=== PATIENT | female | born 1960 ===

== ENCOUNTER 2017-05-19 06:20 | Emergency (ER) | payer OTHER ==
[2017-05-19 07:10] LABS: BLOOD UREA NITROGEN 13 mg/dL (7-17); CHLORIDE 110 mmol/L (98-107); EST GLOMERULAR FILTRATION RATE > 60 mL/min; GLUCOSE 145 mg/dL (70-100); POTASSIUM 3.7 mmol/L (3.5-5.1); SODIUM 141 mmol/L (137-145)
[2017-05-19 07:14] LABS: BASOPHILS 0.6 % (0.0-2.0); EOSINOPHILS 4.6 % (0.0-6.0); EOSINOPHILS# 0.3 X 10^3uL (0.0-0.4); HEMATOCRIT 44.8 % (36.0-48.0); HEMOGLOBIN 15.2 g/dL (12.0-16.0); LYMPHOCYTES 25.1 % (20.0-40.0); LYMPHOCYTES# 1.6 X 10^3uL (0.8-3.8); MEAN CELL VOLUME 88.3 fL (80.0-100.0); MEAN CORPUS. HGB CONCENTRATION 33.9 g/dL (32.0-36.0); MEAN CORPUSCULAR HEMOGLOBIN 29.9 pg (29.0-35.0); MEAN PLATELET VOLUME 9.6 fL (7.4-10.4); MONOCYTES# 0.4 X 10^3uL (0.2-1.0); NEUTROPHILS 62.7 % (54.0-75.0); PLATELET COUNT 165 X 10^3uL (130-440); RED BLOOD COUNT 5.07 X 10^6uL (4.20-6.10); RED CELL DISTRIBUTION WIDTH 12.9 % (11.5-14.5); WHITE BLOOD COUNT 6.3 X 10^3uL (3.9-10.7)
[2017-05-19 07:24] LABS: CALCIUM 9.8 mg/dL (8.4-10.2)
[2017-05-19 07:25] LABS: ETHYL ALCOHOL < 10 mg/dL (<10)
--- NOTE | 2017-05-19 07:30 | CT REPORT ---
HISTORY: Seizure with altered mental status COMPARISON: None. TECHNIQUE: Dose reduction technique was utilized. Axial non-contrast images obtained from skull vertex through foramen magnum. Coronal reformats are obtained and reviewed. FINDINGS: BRAIN: No atrophy. No acute intracranial hemorrhage. No mass effect or hydrocephalus. No CT evidence of infarction. BONES AND EXTRACRANIAL SOFT TISSUES: The orbits are unremarkable. The paranasal sinuses and mastoid a ir cells are clear. The calvarium is intact. IMPRESSION: Normal head CT. Final Electronic Signature: This report was electronically signed by Rio Caicedo MD on 05/19/2017 7:28 AM. bcox /
[2017-05-19] MEDS ORDERED: ONDANSETRON HCL 4 MG/2 ML VIAL ONE (07:51)
--- NOTE | 2017-05-19 09:07 | ER PHYSICIAN DOCUMENTATION ---
Physician Documentation [facility] Name:Luz Cadena Age:56 yrs Sex:Female :1960 Arrival Date:05/19/2017 Time:06:20 BedTrauma-A Private MD:Physician, No ED Philip Amaya Disposition: 05/19/17 08:55 Discharged to Home/Self Care. Impression: Seizure. - Condition is Good. - Discharge Instructions: SEIZURE, Recurrent [Adult]. - Prescriptions for Zofran 4 mg Oral Tablet - take 1-2 tablet by ORAL route every 4-6 hours As needed; 10 tablet. - Medical Reconciliation form form. - Follow up: Private Physician; When: As needed; Reason: Continuance of care. - Problem is new. - Symptoms have improved. - Notes: You need to see a neurologist when you return home. HPI: 05/19 06:51 This 56 yrs old Unknown Female presents to ER via EMS with complaints of Seizure. wa 06:51 The patient presents after having a single isolated seizure, that lasted an unknown sc period of time. Character of seizure(s): Loss of consciousness: the patient experienced loss of consciousness, Motor activity: arching back in bed, foaming at mouth, 05:30, found by , then was confused and no recollection. Seizure onset: at 05:30. Context: the seizure(s) was witnessed, by a significant other, , occurred at home, occurred while the patient was asleep, Contributing factors: suspected or documented drug use, marijuana, marijuana tour yesterday. Seizure Hx: Cause: unknown, Last seizure: The patient's last seizure was approximately 17 year(s) ago, Seizure medications: briefly on seizure meds a few months in 1999. Associated injury: The patient did not suffer any apparent associated injury. EMS care: IV fluids. Current symptoms: confusion. Historical: - Allergies: No known drug Allergies; - Home Meds: 1. levothyroxine oral 2. statin - PMHx: HIGH CHOLESTEROL; - PSHx: None; - Tetanus: > 10 years. - Ebola Screening: : Patient denies exposure to infectious person. Patient denies travel to an Ebola-affected area in the 21 days before illness onset. . - Immunization history: Flu Vaccine None. - Social history: Smoking status: Patient states was never smoker of tobacco. Patient uses alcohol occasionally. marijuana. - Code Status:: Full code. ROS: 06:53 Constitutional: Negative for fever, chills, and weight loss. sc Eyes: Negative for injury, pain, redness, and discharge. ENT: Negative for injury, pain, and discharge. Neck: Negative for injury, pain, and swelling. Cardiovascular: Negative for chest pain, palpitations, and edema. Respiratory: Negative for shortness of breath, cough, wheezing, and pleuritic chest pain. Abdomen/GI: Negative for abdominal pain, nausea, vomiting, diarrhea, and constipation. Back: Negative for injury and pain. MS/Extremity: Negative for injury and deformity. 06:53 Skin: Negative for injury, rash, and discoloration. sc 06:53 Neuro: Positive for seizure activity. Exam: Constitutional: This is a well developed, well nourished patient who is awake, alert, and in no acute distress. Head/Face: Normocephalic, atraumatic. Eyes: Pupils equal round and reactive to light, extra-ocular motions intact. Lids and lashes normal. Conjunctiva and sclera are non-icteric and not injected. Cornea within normal limits. Periorbital areas with no swelling, redness, or edema. ENT: Nares patent. No nasal discharge, no septal abnormalities noted. Tympanic membranes are normal and external auditory canals are clear. Oropharynx with no redness, swelling, or masses, exudates, or evidence of obstruction, uvula midline. Mucous membranes moist. Neck: Trachea midline, no thyromegaly or masses palpated, and no cervical lymphadenopathy. Supple, full range of motion without nuchal rigidity, or vertebral point tenderness. No meningismus. Chest/axilla: Normal chest wall appearance and motion. Nontender with no deformity. No lesions are appreciated. Cardiovascular: Regular rate and rhythm with a normal S1 and S2. No gallops, murmurs, or rubs. Normal PMI, no JVD. No pulse deficits. Respiratory: Lungs have equal breath sounds bilaterally, clear to auscultation and percussion. No rales, rhonchi or wheezes noted. No increased work of breathing, no retractions or nasal flaring. Abdomen/GI: Soft, non-tender, with normal bowel sounds. No distension or tympany. No guarding or rebound. No evidence of tenderness throughout. Back: No spinal tenderness. No costovertebral tenderness. Full range of motion. 06:54 Skin: Warm, dry with normal turgor. Normal color with no rashes, no lesions, and no sc evidence of cellulitis. 06:54 Neuro: Orientation: is normal, Mentation: lucid, able to follow commands, slow to respond, Memory: is normal, Cranial nerves: CN II- XII are normal as tested, Cerebellar function: is grossly normal, Motor: is normal. Vital Signs: 06:43 BP 155 / 91; Pulse 100; Resp 18; Temp 98; Pulse Ox 94% on R/A; Weight 90.72 kg; Height lb 5 ft. 8 in. (172.72 cm); Pain 0/10; 08:41 BP 138 / 86 (auto/); tg 08:45 Pulse 66 MON; Resp 15; Pulse Ox 94% ; tg 08:50 Pulse 77 MON; Resp 22; Pulse Ox 94% ; tg 06:43 Body Mass Index 30.41 (90.72 kg, 172.72 cm) lb MDM: 06:39 Patient medically screened. wa 06:54 Differential diagnosis: seizure. wa 07:12 Transition of care: After a detail discussion of the patient's case, care is sc transferred to Fernando Luther MD. 08:09 Data reviewed: vital signs, nurses notes, lab test result(s), radiologic studies, and jm as a result, I will discharge patient. Counseling: I had a detailed discussion with the patient and/or guardian regarding: the historical points, exam findings, and any diagnostic results supporting the discharge/admit diagnosis, lab results, radiology results, the need for outpatient follow up, with the patient's primary care provider, a neurologist. Medication response: The patient's symptoms have improved. ED course: Pt better after IVF and zofran. CT head shows no abnormality. I believe that pt has a low sz threshold given sz in the past, coming to [place] on day 1, and going on a marijuana tour. Pt advised to not use THC while here and talk to her PCP/neurologist about potentially starting antiepileptics. I spoke w her about this and she declined. DC home w zofran. . 05/19 07:11 Order name: BASIC METABOLIC PANEL EDMS 05/19 07:15 Order name: CBC AUTO DIF, MDIF/RMOR IF IND EDME 05/19 07:25 Order name: ETHYL ALCOHOL EDME 05/19 07:31 Order name: CAT SCAN; HEAD W/O CON [id number] EDME 05/19 06:41 Order name: Iv Saline Lock; Complete Time: 06:47 sc Dispensed Medications: 07:44 Drug: Zofran 4 mg; Route: IVP; Infused Over: 2 mins; Site: right hand; tg 08:09 Follow up: Response: Nausea is decreased tg 07:44 Drug: NS 0.9% 1000 ml; Route: IV; Rate: bolus; Site: right hand; Delivery: [place] tg Tubing; 08:43 Follow up: IV Status: Completed infusion; IV Intake: 1000ml tg Signatures: Adam Leiva RN RN tg Philip Triana MD MD sc Meyer, John, MD MD jm Bollock, Lynda lb
--- NOTE | 2017-05-19 09:07 | ER NURSING DOCUMENTATION ---
Nurse's Notes [facility] Name:Luz Cadena Age:56 yrs Sex:Female :1960 Arrival Date:05/19/2017 Time:06:20 BedTrauma-A Private MD:Physician, No Diagnosis:Seizure Presentation: 05/19 06:28 Acuity: JANA 2 lb 06:35 Presenting complaint: EMS states: possible seizure this am, found pt with lb backarching, foaming at the mouth. lasted approx 5 minutes. full body shaking. had marijuana yesterday, no recollection of incidence. Transition of care: patient was not received from another setting of care. Notified ED Physician of Dr. Triana notified. 06:35 Method Of Arrival: EMS: 410 lb Triage Assessment: 06:41 General: Appears distressed, Behavior is appropriate for age, cooperative. Pain: Denies lb pain. Neuro: Level of Consciousness is awake, alert, confused, Oriented to person, place, Clinical Education Manager are equal bilaterally Moves all extremities. Gait is steady, Speech is normal, Facial symmetry appears normal, Pupils are PERRLA, Denies. Cardiovascular: No deficits noted. Respiratory: Airway is patent Trachea midline Respiratory effort is even, unlabored, Respiratory pattern is regular, Breath sounds are clear bilaterally. GI: No deficits noted. Historical: - Allergies: No known drug Allergies; - Home Meds: 1. levothyroxine oral 2. statin - PMHx: HIGH CHOLESTEROL; - PSHx: None; - Tetanus: > 10 years. - Ebola Screening: : Patient denies exposure to infectious person. Patient denies travel to an Ebola-affected area in the 21 days before illness onset. . - Immunization history: Flu Vaccine None. - Social history: Smoking status: Patient states was never smoker of tobacco. Patient uses alcohol occasionally. marijuana. - Code Status:: Full code. Screenin:46 Infectious Disease Risk None. Abuse screen: Denies threats or abuse. Denies injuries lb from another. Nutritional screening: No deficits noted. Assessment: 06:44 See Triage Assessment done by same RN. General: Appears distressed, Behavior is lb appropriate for age, cooperative. Pain: Denies pain. Neuro: Level of Consciousness is awake, alert, confused, Oriented to person, place, Clinical Education Manager are equal bilaterally Moves all extremities. Gait is steady, Speech is normal, Facial symmetry appears normal, Pupils are PERRLA. 07:35 GI: Pt is actively vomiting. tg Vital Signs: 06:43 BP 155 / 91; Pulse 100; Resp 18; Temp 98; Pulse Ox 94% on R/A; Weight 90.72 kg; Height lb 5 ft. 8 in. (172.72 cm); Pain 0/10; 08:41 BP 138 / 86 (auto/); tg 08:45 Pulse 66 MON; Resp 15; Pulse Ox 94% ; tg 08:50 Pulse 77 MON; Resp 22; Pulse Ox 94% ; tg 06:43 Body Mass Index 30.41 (90.72 kg, 172.72 cm) ED Course: 06:24 Patient arrived in ED. ma1 06:24 Physician, Ladonna is Private Physician. ma1 06:28 Vicky Penaloza is Primary Nurse. lb 06:29 Triage completed. lb 06:39 Philip Triana MD is Attending Physician. mt 06:[address] Triana notified. lb 06:46 Valuables Given to family. Patient has correct armband on for positive identification. lb Bed in low position. Call light in reach. Side rails up X2. Seizure precautions initiated. close monitoring by staff bedside monitoring initiated. 06:46 Maintain field IV. Dressing intact. Good blood return noted. Site clean & dry. lb 07:01 Report received from vicky garcia rn. tg 07:[address] ms 07:[address] Patient moved back from [address]. ms Administered Medications: 07:44 Drug: Zofran 4 mg; Route: IVP; Infused Over: 2 mins; Site: right hand; tg 08:09 Follow up: Response: Nausea is decreased tg 07:44 Drug: NS 0.9% 1000 ml; Route: IV; Rate: bolus; Site: right hand; Delivery: [place] tg Tubing; 08:43 Follow up: IV Status: Completed infusion; IV Intake: 1000ml tg Intake: 08:43 IV: 1000ml; Total: 1000ml. tg Outcome: 08:55 Discharge ordered by . 09:06 Discharged to home ambulatory, with significant other. tg 09:06 Condition: stable 09:06 Discharge Assessment: Patient awake, alert and oriented x 3. No cognitive and/or functional deficits noted. Patient verbalized understanding of disposition instructions. 09:06 Instructed on discharge instructions, follow up and referral plans. medication usage, Prescriptions given X 1. 09:06 IV D/Mark 09:06 Patient left the ED. tg 05/20 10:48 Discharge F/U Call: Unable to reach: left voicemail: tg Signatures: Adam Leiva, RN RN tg Philip Triana MD MD sc Meyer, John, MD MD jm Strickland, Denise ms Penaloza, Vicky Diana, Nishi rizzo
== END 2017-05-19 09:07 | disposition home or self-care (01) ==
LOC: EEVIPCON 06:20 → ER 06:20
DX: R56.9 Unspecified convulsions (principal); F12.90 Cannabis use, unspecified, uncomplicated; E78.00 Pure hypercholesterolemia, unspecified; Z79.899 Other long term (current) drug therapy; Z99.89 Dependence on other enabling machines and devices; Z74.3 Need for continuous supervision
CPT/HCPCS: 36415; 70450; 80048; 80320; 85025; 96361; 96374; 99284; A0425; A0427; J2405